=== PATIENT | female | born 1970 | race Asian ===

== ENCOUNTER 2023-05-07 18:33 | Emergency (ER) | payer BC, SELFPAY ==
[2023-05-07 18:35] VITALS: BP 119/74
[2023-05-07 19:12] VITALS: BP 112/67
[2023-05-07 19:22] LABS: % Basophils 0.8 % (0-2); % Eosinophils 4.5 % (0-6); % Immature Granulocytes 0.1 % (0-0.5); % Monocytes 6.2 % (1.7-9.3); % Neutrophils 60.4 % (42.2-75.2); Absolute Basophils 0.1 10^3/uL (0-0.2); Absolute Eosinophils 0.3 10^3/uL (0-0.7); Absolute Monocytes 0.4 10^3/uL (0.1-0.6); Absolute Neutrophils 4.3 10^3/uL (1.4-6.5); Hematocrit 36.1 % (37.0-47.0); Hemoglobin 12.9 g/dL (12.0-16.0); Mean Corp Hgb Conc. 35.7 g/dL (33.0-37.0); Mean Corpuscular Hgb 31.4 pg (27.0-31.0); Mean Corpuscular Volume 87.8 fL (81.0-99.0); Nucleated Red Blood Cells % 0.3 %; Red Blood Cell Count 4.11 10^6/uL (4.20-5.40); Red Cell Dist. Width 11.9 % (11.5-14.5); White Blood Cell Count 7.1 10^3/uL (4.8-10.8)
[2023-05-07 19:25] LABS: ALT (SGPT) 20 U/L (0-35); AST (SGOT) 28 U/L (14-36); Albumin 4.5 g/dl (3.5-5.0); Alkaline Phosphatase 75 U/L (38-126); Blood Urea Nitrogen 12 mg/dl (7-17); Calcium 9.1 mg/dl (8.4-10.2); Carbon Dioxide 23 mmol/L (22-30); Chloride 105 mmol/L (98-107); Glucose 141 mg/dl (70-99); Potassium 3.9 mmol/L (3.5-5.1); Sodium 136 mmol/L (135-145); Total Bilirubin 0.4 mg/dl (0.2-1.3); Total Protein 7.6 g/dl (6.3-8.2); eGFR > 60.00
[2023-05-07 19:35] LABS: Mean Platelet Volume 10.2 fL (7.4-10.4); Platelet Count 84 10^3/uL (130-400); Troponin I < 0.012 ng/ml
[2023-05-07 21:00] VITALS: BP 92/78
--- NOTE | 2023-05-07 22:19 | ED.GENMED ---
History of Present Illness
General
Chief Complaint: Chest Pain
Source: patient and spouse
Exam Limitations: none
Time Seen by Provider: 05/07/23 19:33
Nursing documentation reviewed up to this point in time: agreed with
Travel History
Have you had any contact with someone who has COVID-19?: No
Do you have any symptoms of coronavirus? Fever > 100 degrees, chills, cough, shortness of breath, sore throat, loss of taste or smell, muscle aches, or headache?: No
History of Present Illness
History of Present Illness:
52-year-old female without significant past medical history presenting to the emergency department today with concerns of intermittent chest pressure starting yesterday lasting roughly half an hour at a time had 3 total episodes since yesterday most
recent episode was just prior to arrival. Had associated palpitations with this. Denies similar symptoms in the past. Denies nausea vomiting diaphoresis, exertional component, shortness of breath. Denies any history of blood clots recent trauma
surgery immobilization, leg swelling, estrogen product usage.
Past History
Past History
ED Past Medical History: None
ED Past Surgical History: None
Social History
Tobacco: Non-smoker
Alcohol: None
Drug: None
Living: with family
Review of Systems
Review of Systems
Allergies reviewed?: Yes
All Other Systems: ROS reviewed and negative except as documented in HPI and ROS
Phy Exam
Physical Exam
Physical Exam:
GENERAL: Alert , in no apparent distress
EYE: pupils equal and reactive
NECK: Supple, no significant adenopathy.
ENT: o/p clr, mmm.
CARDIAC: Regular rate and rhythm .
LUNGS: Clear breath sounds bilaterally, no acute respiratory distress, no wheezes/rales/rhonchi
ABDOMEN: Soft, without focal tenderness, no r/g, no cvat
NEUROLOGICAL: Alert and oriented, no focal neuro deficits
SKIN: Warm and dry, skin intact.
MUSCULOSKELETAL: No edema, well perfused.
PSYCH: Normal and appropriate interaction.
Scores
Heart Score for Chest Pain Patients
STEMI patient?: No
History: Slightly or Non-Suspicious
ECG: Nonspecific Repolarization
Age: >45 - <65 years
Risk Factors: No Risk Factors
Troponin: </= Normal Limit
Heart Score for Chest Pain Patients: 2
Heart Score Risk: 2.5% MACE over next 6 weeks
Course
Orders/Labs/Results
Orders:
Orders
05/07/23 18:38
Electrocardiogram (*1) Urgent
Reason for Study: Chest Pain
EKG- Treatment ONCE
05/07/23 19:07
Complete Blood Count/With Diff Urgent
Comprehensive Metabolic Panel Urgent
Troponin I Urgent
05/07/23 19:34
Chest [CR Chest - 2 Views ] Urgent
Comment:
Reason For Exam: cp
05/07/23 21:21
EKG [Electrocardiogram (*1)] Urgent
Reason for Study: Chest Pain
EKG- Treatment ONCE
05/07/23 21:52
Troponin I Urgent
Abnormal Lab Results
05/07/23
19:07
RBC 4.11 L 10^6/uL
(4.20-5.40)
Hct 36.1 L %
(37.0-47.0)
MCH 31.4 H pg
(27.0-31.0)
Plt Count 84 L 10^3/uL
(130-400)
Glucose 141 H mg/dl
(70-99)
05/07/23 19:07
05/07/23 19:07
Vital Signs
Initial and Last Documented VS:
Initial Vital Signs
Temp Pulse Resp BP Pulse Ox
97.5 F 72 16 119/74 100
05/07/23 18:35 05/07/23 18:35 05/07/23 18:35 05/07/23 18:35 05/07/23 18:35
Last Documented Vital Signs
Temp Pulse Resp BP Pulse Ox
97.5 F 65 21 112/67 96
05/07/23 18:35 05/07/23 20:27 05/07/23 20:27 05/07/23 19:12 05/07/23 20:27
MDM/Problems Addressed
MDM/Problems Addressed:
52-year-old female presenting to the emergency department today with concerns of intermittent chest pain since yesterday 3 total episodes lasting roughly half an hour apiece with associated palpitations. Upon arrival symptoms resolved EKG normal
labs unremarkable vital signs normal patient well-appearing normal heart lung examination. Troponin negative x 2 EKG unchanged throughout ER stay no emergent findings on monitor. Patient very low risk for PE. Patient appear stable for outpatient
follow-up. Return precautions given.
*Critical Care Note
Total Time (30-74mins, 75-104mins- exclusive of procedures): Not Applicable
ED Attending Note
-
Portions of this chart may have been created with voice recognition software.� Occasional wrong word or��sound alike� substitutions may have occurred due to the inherent limitations of voice recognition software.
Discharge Plan
Departure
Patient Disposition: Home (Routine Discharge)
Date of Disposition: 05/07/23
Time of Disposition: 22:50
Patient with high blood pressure during this ER visit?: No
Condition: Good
Covid-19: Not Applicable
Discharge Problem:
Chest pain
Instructions: Chest Pain DCA Follow Up
Prescriptions:
No Action
No Current Medications
0
Referrals:
Louis Candelario MD [Family Provider] -
Activity Restrictions/Additional Instructions:
You came to the emergency department today with concerns of intermittent chest discomfort. Here you had a reassuring evaluation. Please follow closely with cardiology. Return to the emergency department for any worsening, new or concerning
symptoms.
Interventions
Interventions:
*General Assessment Last Done: 05/07/23 18:35
ED- Fall Risk Assessment Last Done: 05/07/23 19:14
*ED COVID-19 Vaccine History Last Done: 05/07/23 18:35
ED- Cardiac Assessment Last Done: 05/07/23 19:14
[2023-05-07 22:20] LABS: Troponin I < 0.012 ng/ml
== END 2023-05-07 23:05 | disposition home or self-care (01) ==
LOC: EMR 18:33
PROVIDERS: Emergency Medicine; Physician Assistant; EMERGENCY PHYSICIAN Emergency Medicine; FAMILY PHYSICIAN Family Medicine
DX: R07.89 Other chest pain (principal); R00.2 Palpitations; Z88.2 Allergy status to sulfonamides
CPT/HCPCS: 99284; 71046; 80053; 84484; 85025; 93005

== ENCOUNTER 2023-12-23 23:40 | Emergency (ER) | payer BC, SELFPAY ==
[2023-12-23 23:41] VITALS: BP 139/83
[2023-12-23 23:59] LABS: % Basophils 1.1 % (0-2); % Immature Granulocytes 0.2 % (0-0.5); % Monocytes 9.7 % (1.7-9.3); Absolute Basophils 0.1 10^3/uL (0-0.2); Absolute Eosinophils 0.4 10^3/uL (0-0.7); Absolute Lymphocytes 2.9 10^3/uL (1.2-3.4); Absolute Monocytes 0.9 10^3/uL (0.1-0.6); Absolute Neutrophils 5.1 10^3/uL (1.4-6.5); Hematocrit 38.4 % (37.0-47.0); Hemoglobin 13.5 g/dL (12.0-16.0); Mean Corp Hgb Conc. 35.2 g/dL (33.0-37.0); Mean Corpuscular Hgb 30.3 pg (27.0-31.0); Mean Corpuscular Volume 86.3 fL (81.0-99.0); Mean Platelet Volume 9.3 fL (7.4-10.4); Nucleated Red Blood Cells % 0 %; Platelet Count 283 10^3/uL (130-400); Red Blood Cell Count 4.45 10^6/uL (4.20-5.40); Red Cell Dist. Width 12.2 % (11.5-14.5); White Blood Cell Count 9.5 10^3/uL (4.8-10.8)
[2023-12-24] VITALS: BP 113/72
[2023-12-24 00:18] LABS: ALT (SGPT) 30 U/L (0-35); AST (SGOT) 32 U/L (14-36); Albumin 4.9 g/dl (3.5-5.0); Alkaline Phosphatase 75 U/L (38-126); Blood Urea Nitrogen 20 mg/dl (7-17); Calcium 10.1 mg/dl (8.4-10.2); Carbon Dioxide 23 mmol/L (22-30); Chloride 102 mmol/L (98-107); Estimated Creatinine Clearance 66 ml/min; Glucose 142 mg/dl (70-99); Potassium 3.8 mmol/L (3.5-5.1); Sodium 143 mmol/L (135-145); Total Bilirubin 0.4 mg/dl (0.2-1.3); Total Protein 7.9 g/dl (6.3-8.2); eGFR > 60.00
[2023-12-24] MEDS: DILAUDID 0.5 MG IV (00:27)
[2023-12-24] MEDS: ZOFRAN 4 MG IV (00:27)
[2023-12-24] MEDS: NSS 1000 IV (00:32)
[2023-12-24 01:49] VITALS: BP 107/60
[2023-12-24 02:42] VITALS: BP 100/59
--- NOTE | 2023-12-24 02:44 | ED.GENMED ---
History of Present Illness
General
Chief Complaint: Musculo-Skeletal Complaint
Source: patient, spouse and ambulance crew
Exam Limitations: none
Time Seen by Provider: 12/24/23 00:04
Nursing documentation reviewed up to this point in time: agreed with
History of Present Illness
History of Present Illness:
This is a 53-year-old woman who has no significant past medical history save for intermittent vertigo states she developed acute dizziness tonight associated with nausea that worsened while passing a bowel movement. She denies diarrhea, denies
black or bloody stools. She was able to get up and walk up her stairs to her bedroom where dizziness seemed to worsen and she lost her balance falling and twisting her left ankle. She denies loss of consciousness, denies feeling lightheaded, no
chest pain or palpitations, no diaphoresis, no vomiting. She did not strike her head, denies headache, denies neck nor back pain. No weakness nor numbness. She complains of severe pain left lateral ankle that radiates to her left lateral lower
leg, unable to bear weight and was brought to the ED by EMS. Dizziness has since resolved and she has had no further nausea as well.
She does note history of similar sporadic episodes of dizziness but generally not as prolonged as tonight's episode. Since arrival to the ED feeling markedly improved with no further dizziness, no lightheadedness, no nausea.
She takes no medicines on a daily basis.
She is menopausal.
Past History
Past History
ED Past Medical History: Other (Vertigo)
ED Past Surgical History: None
Social History
Tobacco: Non-smoker
Alcohol: None
Drug: None
Personal:
Living: with family
Employment: Employed
Family History
Family History: Other (Noncontributory)
Phy Exam
Physical Exam
Physical Exam:
GENERAL: 53-year-old woman appears her stated age, awake and alert, appears in mild distress, intermittently tearful related to left ankle pain. Cooperative. is accompanying.
EYE: pupils equal and reactive. Extraocular muscles intact. Anicteric. The head is normocephalic, atraumatic.
NECK: Supple, nontender, no meningismus, no significant adenopathy.
ENT: posterior pharynx is clear, oral mucosa is moist. TM clear b/l, nares patent.
CARDIAC: Regular rate and rhythm. no murmur.
LUNGS: Clear breath sounds bilaterally, no acute respiratory distress, no wheezes/rales/rhonchi
ABDOMEN: Soft, nondistended, without focal tenderness, no r/g, no cvat. normoactive BS.
BACK: No midline bony tenderness. No palpable bony pelvic tenderness.
NEUROLOGICAL: Alert and oriented x3, no focal neuro deficits.
SKIN: Warm and dry, normal color, skin intact. No rash.
MUSCULOSKELETAL: No C/C/E. There is moderate soft tissue swelling left lateral ankle with moderate to severe tenderness to palpation left lateral ankle as well as mild to moderate tenderness lateral lower leg. There is no tenderness to the foot.
No tenderness to the knee. Markedly limited range of motion of left ankle related to pain. No gross deformity. Peripheral pulses are full and equal.
There is very mild tenderness right lateral ankle without soft tissue swelling and full range of motion without difficulty.
PSYCH: Normal and appropriate interaction.
Course
Orders/Labs/Results
Orders:
Orders
12/23/23 23:49
EKG [Electrocardiogram (*1)] Urgent
Reason for Study: Vertigo / Dizzy
EKG- Treatment ONCE
12/23/23 23:50
Complete Blood Count/With Diff Urgent
Comprehensive Metabolic Panel Urgent
12/24/23 00:14
HYDROmorphone [Dilaudid] 0.5 mg IV NOW STA
Ondansetron Injectable [Zofran] 4 mg IV NOW STA
Ankle, Right 3 view CR [CR Ankle - Right Min 3 Views *] Urgent
Comment:
Reason For Exam: FALL, RIGHT LAT ANKLE PAIN
Ankle, left 3 view CR [CR Ankle - Left Min 3 Views ] Urgent
Comment:
Reason For Exam: FALL, SEVERE L ANKLE PAIN
Tib/Fib, Left 2 View [CR Leg Tibia/fibula Left 2 Vw] Urgent
Comment:
Reason For Exam: FALL, SEVERE L ANKLE L LAT LEG PAIN
12/24/23 00:24
0.9% Sodium Chloride 1000 ml [Nss] 1,000 ml IV BOLUS
12/24/23 01:34
Splints/Slings/Crut- Treatment ONCE
Crutches: Yes
Location: Left
Type of Splint: Short Leg
Abnormal Lab Results
12/23/23
23:50
Absolute Monos (auto) 0.9 H 10^3/uL
(0.1-0.6)
Monocytes % 9.7 H %
(1.7-9.3)
BUN 20 H mg/dl
(7-17)
Glucose 142 H mg/dl
(70-99)
12/23/23 23:50
12/23/23 23:50
Vital Signs
Initial and Last Documented VS:
Initial Vital Signs
Temp Pulse Resp BP Pulse Ox
97.6 F 69 24 139/83 100
12/23/23 23:41 12/23/23 23:41 12/23/23 23:41 12/23/23 23:41 12/23/23 23:41
Last Documented Vital Signs
Temp Pulse Resp BP Pulse Ox
97.6 F 72 17 113/72 99
12/23/23 23:41 12/24/23 02:00 12/24/23 00:30 12/24/23 00:00 12/24/23 00:30
Procedures
Splint Check
Splint checked by provider?: Yes
Circulation/Movement/Sensation post splint application: brisk cap refill and full sensation
MDM/Problems Addressed
Differential Diagnosis Includes:
Concern for left ankle fracture, less likely right ankle fracture but will check x-rays.
Patient reports episode of dizziness and nausea prior to loss of balance and fall, denies lightheadedness, denies syncope, denies palpitations but due to severity of episode will check labs, EKG, monitor technician and continue to observe for recurrent
episode.
Will medicate for pain with an IV dose of Dilaudid and initiate IV fluids.
Chronic conditions affecting care: Other (Vertigo)
*Radiology
Radiology exam reviewed: preliminary read by ED provider (X-rays show nondisplaced distal fibula on the left. Ankle mortise intact. Right ankle is unremarkable.)
*Pulse Oximetry
Patient hypoxic: no
*EKG
Interpreted by ED Provider?: Yes
Comparison EKG: no comparison EKG present
Rate: normal
Rhythm: sinus
[place]: normal axis
Interval: normal interval
QRS Pattern: normal QRS
Ischemia: no ischemia
*Hand Packager Interpretation
Rate: normal
Interpretation: normal
Rhythm: sinus
*Critical Care Note
Total Time (30-74mins, 75-104mins- exclusive of procedures): Not Applicable
Update Note
Update Note:
X-ray showed nondisplaced distal fibula fracture left ankle. Right ankle x-ray is unremarkable. Left tib-fib film demonstrates distal fibula fracture otherwise unremarkable.
Patient has had no return of dizziness nor nausea, much more comfortable after an IV dose of Dilaudid.
She has been placed in a posterior OCL splint and will plan for crutches versus walker with nonweightbearing of left lower extremity with plan for follow-up with orthopedics.
ED Attending Note
-
Portions of this chart may have been created with voice recognition software.� Occasional wrong word or��sound alike� substitutions may have occurred due to the inherent limitations of voice recognition software.
Discharge Plan
Departure
Patient Disposition: Home (Routine Discharge)
Date of Disposition: 12/24/23
Time of Disposition: 02:44
Patient with high blood pressure during this ER visit?: No
Condition: Good
Discharge Problem:
Closed fracture of distal end of left fibula, Acute severe vertigo
Instructions: How to Use Crutches, Ankle Fracture ED, Splint Care ED
Prescriptions:
New
oxycodone-acetaminophen [Percocet] 5-325 mg Tablet
1 tab PO Q6HPRN PRN (Reason: pain) Qty: 12 0RF
ibuprofen 600 mg tablet
600 mg PO QID PRN (Reason: fever or pain) Qty: 20 0RF
Referrals:
Betzaida Valdez I., DO [Active] - Call in 1-3 days for appt
Interventions
Interventions:
*Risk Screen - Suicide Last Done: 12/23/23 23:41
*General Assessment Last Done: 12/23/23 23:41
*Neglect/Abuse Screening Last Done: 12/23/23 23:41
ED- Fall Risk Assessment Last Done: 12/24/23 00:41
*ED COVID-19 Vaccine History Last Done: 12/23/23 23:41
ED-Musculoskeletal Assessment Last Done: 12/24/23 00:41
Discharge Date and Time
Print Language: MACEDONIAN
[2023-12-24] MEDS: PERCOCET 5/325 1 TABLET PO (03:20)
== END 2023-12-24 03:29 | disposition home or self-care (01) ==
LOC: EMR 23:40
PROVIDERS: EMERGENCY PHYSICIAN Emergency Medicine
DX: S82.832A Other fracture of upper and lower end of left fibula, initial encounter for closed fracture (principal); R42 Dizziness and giddiness; M25.571 Pain in right ankle and joints of right foot; W18.39XA Other fall on same level, initial encounter; X50.1XXA Overexertion from prolonged static or awkward postures, initial encounter; Y92.003 Bedroom of unspecified non-institutional (private) residence as the place of occurrence of the external cause; Z88.2 Allergy status to sulfonamides
CPT/HCPCS: 99284; 96374; 29515; 96375; 96361; 73590; 73610; 80053; 85025; 93005

== ENCOUNTER 2025-02-11 12:17 | Emergency (ER) | payer BC, SELFPAY ==
[2025-02-11] VITALS (7 sets, daily range): BP systolic 98–113; BP diastolic 42–72; BMI 26.4
--- NOTE | 2025-02-11 13:36 | ED.GENMED ---
History of Present Illness
General
Chief Complaint: Fever
Time Seen by Provider: 02/11/25 13:03
History of Present Illness
History of Present Illness:
54-year-old female presents to the emergency department for evaluation of sore throat, fever, dysphagia, and bilateral ear pain for the past 4 to 5 days. She was seen at urgent care yesterday and tested negative for COVID flu and strep. She has
been taking Advil every 3-4 hours with modest improvement however symptoms returned rather quickly after medication wears off. Denies any cough or nausea/vomiting.
Past History
Past History
ED Past Medical History: Other (Vertigo)
ED Past Surgical History: None
Social History
Tobacco: Non-smoker
Alcohol: None
Drug: None
Personal:
Living: with family
Employment: Employed
Family History
Family History: Other (Noncontributory)
Review of Systems
Review of Systems
Allergies reviewed?: Yes
All Other Systems: ROS reviewed and negative except as documented in HPI and ROS
Phy Exam
Physical Exam
Physical Exam:
GEN: Well appearing, NAD, WDWN
HEENT: Significant oropharyngeal erythema with tonsillar hypertrophy and exudates. Uvula is midline with no evidence for peritonsillar abscess. Voice is somewhat muffled, positive bilateral anterior cervical adenopathy
Cardiac: Tachycardic, regular
Lung: No respiratory distress, no tachypnea, lungs clear to auscultation bilaterally
MSK: No gross deformity or injuries
Skin: Good color, no pallor or jaundice, no rashes
Neuro: AO x3, moves all extremities freely
Psych: Calm, cooperative
Course
Orders/Labs/Results
Orders:
Orders
02/11/25 12:24
EKG [Electrocardiogram (*1)] Urgent
Reason for Study: Tachycardia
EKG- Treatment ONCE
02/11/25 13:35
Dexamethasone Sod Phosphate [Decadron] 20 mg .ROUTE .STK-MED ONE
02/11/25 13:36
CT Neck With Iv Contrast Urgent
Comment:
Reason For Exam: pharyngeal abscess
Dexamethasone Sod Phosphate [Decadron] 10 mg IV NOW STA
Test Result ONCE
02/11/25 13:41
Basic Metabolic Panel Urgent
Complete Blood Count/With Diff Urgent
HCG, Serum Qualitative Screen Urgent
Manual Differential Urgent
02/11/25 13:56
Acetaminophen [Tylenol] 1,000 mg .ROUTE .STK-MED ONE
02/11/25 13:57
Acetaminophen [Tylenol] 1,000 mg PO NOW STA
02/11/25 16:45
0.9% Sodium Chloride 1000 ml [Nss] 1,000 ml IV BOLUS
02/11/25 17:07
Ketorolac [Toradol] 15 mg .ROUTE .STK-MED ONE
02/11/25 17:09
Ketorolac [Toradol] 15 mg IV NOW STA
02/11/25 17:11
Ampicillin/Sulbactam 3 G [Unasyn] 3 gm 0.9% Sodium Chloride 100 ml [Nss] 100 ml IV NOW
Abnormal Lab Results
02/11/25
13:41
WBC 19.7 H 10^3/uL
(4.8-10.8)
RBC 4.05 L 10^6/uL
(4.20-5.40)
Abs Neuts (Manual) 16.5 H 10^3/uL
(1.4-6.5)
Band Neutrophils 19 H %
(0-3)
Lymphocytes (Manual) 6 L %
(20-51)
Glucose 106 H mg/dl
(70-99)
02/11/25 13:41
02/11/25 13:41
Vital Signs
Initial and Last Documented VS:
Initial Vital Signs
Temp Pulse Resp BP Pulse Ox
100.2 F 109 20 104/66 95
02/11/25 12:22 02/11/25 12:22 02/11/25 12:22 02/11/25 12:22 02/11/25 12:22
Last Documented Vital Signs
Temp Pulse Resp BP Pulse Ox
99.2 F 84 21 102/42 97
02/11/25 15:29 02/11/25 17:00 02/11/25 17:00 02/11/25 17:00 02/11/25 16:45
MDM/Problems Addressed
MDM/Problems Addressed:
Exam reveals clear exudative tonsillitis and given the patient's abnormal voice a CT was obtained which did reveal a developing abscess in the left tonsillar pillar as well as numerous phlegmonous changes of the oropharynx. She is tolerating p.o.
and there were no airway Concerns at this time, I reviewed the imaging findings with ENT on-call who agrees with plan for outpatient antibiotics and steroids. Initial IV dose was given in the ED.
*Pulse Oximetry
SaO2: 99
Oxygen Mode of Delivery: Room air
Patient hypoxic: no
*Critical Care Note
Total Time (30-74mins, 75-104mins- exclusive of procedures): Not Applicable
ED Attending Note
-
Portions of this chart may have been created with voice recognition software.� Occasional wrong word or��sound alike� substitutions may have occurred due to the inherent limitations of voice recognition software.
Discharge Plan
Departure
Patient Disposition: Home (Routine Discharge)
Date of Disposition: 02/11/25
Time of Disposition: 17:33
Patient with high blood pressure during this ER visit?: No
Discharge Problem:
Abscess of tonsil
Instructions: Peritonsillar abscess
Prescriptions:
New
amoxicillin-pot clavulanate 875-125 mg tablet
1 tab PO BID Qty: 14 0RF
prednisone 10 mg tablet
30 mg PO DAILY 7 Days Qty: 21 0RF
No Action
oxycodone-acetaminophen [Percocet] 5-325 mg Tablet
1 tab PO Q6HPRN PRN (Reason: pain) Qty: 12 0RF
ibuprofen 600 mg tablet
600 mg PO QID PRN (Reason: fever or pain) Qty: 20 0RF
Referrals:
Louis Candelario MD [Family Provider, Family Practice]
Naila Jorge MD [Active, Otology]
Activity Restrictions/Additional Instructions:
Follow-up with the ENT specialist on Thursday or Thursday. Start the antibiotics and steroids tomorrow. If you have difficulty swallowing the pills or drinking liquids return to the ER for IV therapy
Interventions
Interventions:
*Risk Screen - Suicide Last Done: 02/11/25 12:19
*General Assessment Last Done: 02/11/25 12:19
*Neglect/Abuse Screening Last Done: 02/11/25 12:19
*ED- Fall Risk Assessment Last Done: 02/11/25 12:19
*ED COVID-19 Vaccine History Last Done: 02/11/25 12:19
*ED Influenza Vaccine History Last Done: 02/11/25 12:19
ED- Neurological Assessment Last Done: 02/11/25 13:50
ED-Skin Assessment Last Done: 02/11/25 13:50
Discharge Date and Time
Print Language: SLOV[place]
[2025-02-11] MEDS: DECADRON 10 MG IV (13:47)
[2025-02-11] MEDS: TYLENOL 1000 MG PO (13:57)
[2025-02-11 14:13] LABS: Hematocrit 37.2 % (37.0-47.0); Hemoglobin 12.3 g/dL (12.0-16.0); Mean Corp Hgb Conc. 33.1 g/dL (33.0-37.0); Mean Corpuscular Volume 91.9 fL (81.0-99.0); Platelet Count 168 10^3/uL (130-400); Red Cell Dist. Width 12.6 % (11.5-14.5)
[2025-02-11 14:19] LABS: Absolute Neutrophils -Man Diff 16.5 10^3/uL (1.4-6.5)
[2025-02-11 14:20] LABS: Platelets Checked Yes
[2025-02-11 14:21] LABS: HCG, Serum Qualitative Screen Negative; Normal RBC Morphology Yes; Total Cells Counted 100
[2025-02-11 14:27] LABS: Blood Urea Nitrogen 9 mg/dl (7-17); Calcium 8.7 mg/dl (8.4-10.2); Carbon Dioxide 27 mmol/L (22-30); Chloride 102 mmol/L (98-107); Estimated Creatinine Clearance 77 ml/min; Glucose 106 mg/dl (70-99); Sodium 138 mmol/L (135-145); eGFR > 60.00
[2025-02-11] MEDS: TORADOL 15 MG IV (17:09)
[2025-02-11] MEDS: NSS 1000 IV (17:13)
[2025-02-11] MEDS: UNASYN IV (17:23)
== END 2025-02-11 19:01 | disposition home or self-care (01) ==
LOC: EMR 12:17
PROVIDERS: Physician Assistant; EMERGENCY PHYSICIAN Emergency Medicine; FAMILY PHYSICIAN Family Medicine
DX: J36 Peritonsillar abscess (principal)
CPT/HCPCS: 99284; 96365; 96375 ×2; 96361; 70491; 80048; 84703; 85025; 93005; Q9967